=== PATIENT | female | born 1945 | race Caucasian/White ===

== ENCOUNTER 2022-07-30 11:55 | Outpatient (CLI) | payer MEDICARE, SELFPAY ==
--- NOTE | ~2022-07-30 | CT_ITS ---
EXAMINATION:CT diagnostic chest wo con DATE: 07/30/2022 12:40 INDICATION: Hypoxemia. TECHNIQUE: Computed tomography (CT) of the chest was performed without intravenous contrast. Automate d exposure control and iterative reconstruction technique were employed. The dose-length product (DLP ) was 479.71 mGy-cm. COMPARISON: None. FINDINGS: There is elevation of left hemidiaphragm. A calcified right lung nodule and calcified right hilar and mediastinal lymph nodes are consistent with old granulomatous disease. There is mild atele ctasis bilaterally. There is peripheral septal thickening in the lungs with an inferior predominance. No bronchiectasis or honeycombing. There is a 4 mm nodule in right middle lobe, likely benign. There is a 6 mm nodule in right minor fissure, likely benign. There is a 3 mm nodule in right upper lobe, likely benign. No pleural effusion. Cardiomegaly is noted. There are coronary artery calcifications. There is a right breast implant. Calcifications in the liver and spleen are consistent with old granu lomatous disease. There is levocurvature of upper thoracic spine and dextrocurvature of lower thoraci c spine. There is kyphosis of thoracic spine. There is mild chronic anterior wedging of multiple vert ebral bodies. There is severe thoracic spondylosis. There are bridging endplate osteophytes at multip le levels in the spine, consistent with diffuse idiopathic skeletal hyperostosis (DISH). IMPRESSION: 1. Mild chronic lung disease. 2. Elevation of left hemidiaphragm. 3. Cardiomegaly. Reviewed, dictated and finalized at location A.
== END 2022-07-30 11:56 | disposition home or self-care (01) ==
PROVIDERS: Visit Provider Internal Medicine Pulmonary Disease
DX: R09.02 Hypoxemia (principal); I51.7 Cardiomegaly; R91.8 Other nonspecific abnormal finding of lung field
CPT/HCPCS: 71250